=== PATIENT | male | born 1995 | race Caucasian/White ===

== ENCOUNTER 2016-09-11 11:37 | Emergency (ER) | payer OTHER ==
[~2016-09-11] VITALS: Ht 180.3 cm; Wt 110.0 kg
[~2016-09-11 11:37] MED LIST: LISD40 PO; OMEP20TA PO
[2016-09-11 11:50] VITALS: BP 136/104; PULSE 112; RESP 16; TEMP 98.5; O2SAT 100
--- NOTE | 2016-09-11 12:23 | PD ---
HPI Chief Complaint: Bite or Sting Time Seen by Provider: 12:18 Travel History International Travel<30 days: No Contact w/Intl Traveler<30days: No Traveled to known affect area: No History of Present Illness HPI 21-year-old male presents to the emergency room for evaluation of dog bite to the face. Patient's Husky bit him just prior to arrival. He washed the wound and applied ice. Reports minimal pain. Denies loss of consciousness or any other injuries. Patient is up-to-date on rabies vaccination. Patient's last tetanus was less than 5 years ago. PFSH Past Medical History ADHD: Yes Diminished Hearing: No Immunizations Current: Yes Tetanus Vaccination: < 5 Years Influenza Vaccination: Yes Past Surgical History Surgical History: No Previous Surgery Social History Alcohol Use: No Tobacco Use: Yes (VAPE) Substance Use: Yes (UNKNOWN, PT DENIES) Allergies-Medications (Allergen,Severity, Reaction): Coded Allergies: Penicillin (Verified Allergy, Unknown, "Runs in the family", 09/11/16) Reported Meds & Prescriptions Reported Meds & Active Scripts Active Vyvanse (Lisdexamfetamine Dimesylate) 40 Mg Cap 40 Mg PO DAILY Review of Systems Except as stated in HPI: all other systems reviewed are Neg Physical Exam Narrative GENERAL: Well-nourished, well-developed male in no acute distress. Afebrile. Ambulatory. SKIN: Focused skin assessment warm/dry. There is a 2 cm well approximated, deep laceration just under the right eye. There is a 2 cm superficial laceration on the right side of the nose. HEAD: Normocephalic. EYES: No scleral icterus. No injection or drainage. NECK: Supple, trachea midline. No JVD or lymphadenopathy. CARDIOVASCULAR: Regular rate and rhythm without murmurs, gallops, or rubs. RESPIRATORY: Breath sounds equal bilaterally. No accessory muscle use. PSYCHIATRIC: No delusional thought processes. No hallucinations. Data Data Last Documented VS Vital Signs Date Time Temp Pulse Resp B/P Pulse Ox O2 Delivery O2 Flow Rate FiO2 09/11/16 11:50 98.5 112 16 136/104 100 Orders Lidocaine 1% Inj (50 Ml) (Xylocaine 1% I (09/11/16 12:30) Sulfamet-Trimeth Ds 800-160 Mg (Bactrim (09/11/16 12:30) Metronidazole (Flagyl) (09/11/16 12:30) [facility] Medical Decision Making Medical Screen Exam Complete: Yes Emergency Medical Condition: Yes Medical Record Reviewed: Yes Differential Diagnosis Dog bite, abrasion, fracture, skin tear Narrative Course 21-year-old male presents to the emergency room for evaluation of a dog bite to the face. Patient's own dog bit him just prior to arrival. Dog and patient are up-to-date on rabies and tetanus, respectively. Patient given first dose of Flagyl and Bactrim in the emergency room. Wounds were thoroughly cleansed and then repaired, see procedure note for details. Patient discharged with wound care instructions and prescriptions for Bactrim and Flagyl and told to follow up with a primary care physician or return for worsening symptoms. Given signs and symptoms to return sooner for infection. He understands and agrees to plan. Procedures Procedure Narrative LACERATION LOCATION: Under right eye LENGTH: 2 cm NUMBER OF STITCHES/JUAN J: 5 simple interrupted REPAIR: The area of the laceration was prepped with Betadine and sterilely draped. The laceration was infiltrated with 1% lidocaine. The wound was copiously irrigated and explored without evidence of foreign body, tendon injury or neurovascular injury. The wound was closed using 6-0 Prolene. This was a single layer repair. A sterile dressing was applied. The patient was advised to keep the dressing clean and dry. Patient tolerated the procedure well. LACERATION LOCATION: Right side of nose LENGTH: 2 cm NUMBER OF STITCHES/JUAN J: 8 simple interrupted REPAIR: The area of the laceration was prepped with Betadine and sterilely draped. The laceration was infiltrated with 1% lidocaine. The wound was copiously irrigated and explored without evidence of foreign body, tendon injury or neurovascular injury. The wound was closed using 6-0 Prolene. This was a single layer repair. A sterile dressing was applied. The patient was advised to keep the dressing clean and dry. Patient tolerated the procedure well. Diagnosis Primary Impression: Dog bite of face Qualified Code: S01.85XA - Dog bite of face, initial encounter Referrals: Primary Care Physician Patient Instructions: Animal Bite (ED), Facial Laceration (ED), General Instructions Additional Instructions: Rest and drink plenty of fluids. Keep wounds clean and dry. Apply triple antibiotic ointment daily. Sutures out in 5 days. Take ibuprofen with food as directed, as needed for pain. Apply ice to the affected area for 20 minutes at a time, as needed for pain and swelling. Follow-up with a primary care physician. Return to the emergency room for worsening symptoms. Med/Other Pt SpecificInfo: Prescription(s) given Disposition: 01 DISCHARGE HOME Condition: Stable Kaylin Vallejo Sep 11, 2016 12:23
[2016-09-11] MEDS ORDERED: metroNIDAZOLE 500 MG TAB PO ONE (12:30)
[2016-09-11] MEDS ORDERED: LIDOCAINE HCL 1% 50 ML VIAL INFIL ONE (12:30)
[2016-09-11] MEDS ORDERED: SULFAMETHOXAZOLE-TRIMETHOPRIM DS 800-160 MG TAB PO ONE (12:30)
[2016-09-11] MEDS ORDERED: BACT800T5 PO (13:14)
[2016-09-11] MEDS ORDERED: METR-1 PO (13:14)
[2016-09-11 13:20] VITALS: BP 160/80
[2016-09-22] MEDS ORDERED: LISD40 PO (15:00)
== END 2016-09-11 13:20 | disposition home or self-care (01) ==
LOC: PHEFT 11:37
DX: S01.85XA Open bite of other part of head, initial encounter (principal); W54.0XXA Bitten by dog, initial encounter
CPT/HCPCS: 12013